=== PATIENT | female | born 1965 | race American Indian/Alaskan Native ===

== ENCOUNTER 2020-03-08 10:32 | Emergency (ER) | payer SELFPAY ==
[2020-03-08 11:31] VITALS: BP 144/95
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
== END 2020-03-08 12:28 | disposition home or self-care (01) ==
LOC: ED 10:32
DX: S29.019A Strain of muscle and tendon of unspecified wall of thorax, initial encounter (principal); I10 Essential (primary) hypertension; E11.9 Type 2 diabetes mellitus without complications; Z98.890 Other specified postprocedural states; Z79.899 Other long term (current) drug therapy; V49.69XA Unspecified car occupant injured in collision with other motor vehicles in traffic accident, initial encounter; Y93.89 Activity, other specified; Y92.488 Other paved roadways as the place of occurrence of the external cause; Y99.8 Other external cause status
CPT/HCPCS: 99282

== ENCOUNTER 2020-03-16 12:27 | Emergency (ER) | payer SELFPAY ==
[2020-03-16 12:33] VITALS: BP 140/80
[2020-03-16 13:22] LABS: Bilirubin,Urine NEG (Negative); Blood,Urine NEG (Negative); Color,Urine Yellow (Yellow); Mucus,Urine 1+ /HPF; Protein,Urine <15 mg/dL mg/dL (Negative)
[2020-03-16 13:26] LABS: HCG Qualitative,Urine Negative (Negative)
[2020-03-16] MEDS ORDERED: MORPHINE 4 MG/1 ML INJ IV ONE (14:16)
[2020-03-16] MEDS ORDERED: ONDANSETRON 4 MG/2 ML INJ IV ONE (14:16)
--- NOTE | 2020-03-16 14:46 | Emergency Department Report ---
ED Abdominal Pain HPI - General Chief Complaint: Abdominal Pain Stated Complaint: LOWER ABD PAIN/LOWER BACK PUI?: No Time Seen by Provider: 03/16/20 14:16 Source: patient Mode of arrival: Ambulatory Limitations: No Limitations - History of Present Illness Initial Comments: 54-year-old female presenting with chief complaint of sudden onset abdominal pain around 1:00 this morning located in the lower abdomen, radiating toward the back. Denies any nausea vomiting diarrhea constipation fevers urinary complaints or other concerns. History of appendectomy and x2. Pain described as moderate to severe with no alleviating or exacerbating factors. MD Complaint: abdominal pain Severity scale (0 -10): 8 - Related Data Previous Rx's Medication Instructions Recorded Last Taken Type Naproxen 500 mg PO BID #20 tablet 03/08/20 Unknown Rx methOCARBAMOL [Robaxin TAB] 500 mg PO Q6H PRN #20 tablet 03/08/20 Unknown Rx Ciprofloxacin HCl [Ciprofloxacin 500 mg PO Q12HR #20 tab 03/16/20 Unknown Rx TAB] metroNIDAZOLE [Flagyl] 500 mg PO Q8HR #30 tablet 03/16/20 Unknown Rx traMADoL [Ultram 50 MG tab] 50 mg PO Q6HR PRN #12 tablet 03/16/20 Unknown Rx Allergies Allergy/AdvReac Type Severity Reaction Status Date / Time codeine Allergy Rash Verified 03/08/20 11:31 ED Review of Systems ROS: Stated complaint: LOWER ABD PAIN/LOWER BACK Other details as noted in HPI Comment: All other systems reviewed and negative Gastrointestinal: as per HPI ED Past Medical Hx - Past Medical History Previous Medical History?: Yes Hx Hypertension: Yes Hx Diabetes: Yes - Surgical History Past Surgical History?: Yes Hx Appendectomy: Yes Additional Surgical History: c-sections x2, ganglion cyst removal - Social History Smoking Status: Never Smoker Substance Use Type: None - Medications Home Medications: Home Medications Medication Instructions Recorded Confirmed Last Taken Type Naproxen 500 mg PO BID #20 tablet 03/08/20 Unknown Rx methOCARBAMOL [Robaxin TAB] 500 mg PO Q6H PRN #20 tablet 03/08/20 Unknown Rx Ciprofloxacin HCl [Ciprofloxacin 500 mg PO Q12HR #20 tab 03/16/20 Unknown Rx TAB] metroNIDAZOLE [Flagyl] 500 mg PO Q8HR #30 tablet 03/16/20 Unknown Rx traMADoL [Ultram 50 MG tab] 50 mg PO Q6HR PRN #12 tablet 03/16/20 Unknown Rx ED Physical Exam - General Limitations: No Limitations General appearance: alert, in no apparent distress - Head Head exam: Present: atraumatic, normocephalic - Eye Eye exam: Present: normal appearance - ENT ENT exam: Present: mucous membranes moist - Neck Neck exam: Present: normal inspection - Respiratory Respiratory exam: Present: normal lung sounds bilaterally. Absent: respiratory distress - Cardiovascular Cardiovascular Exam: Present: regular rate, normal rhythm. Absent: systolic mur mur, diastolic murmur, rubs, gallop - GI/Abdominal GI/Abdominal exam: Present: soft, tenderness (llq, exam somewhat limited by body habitus), normal bowel sounds. Absent: distended, guarding, rebound, rigid - Extremities Exam Extremities exam: Present: normal inspection - Back Exam Back exam: Present: normal inspection - Neurological Exam Neurological exam: Present: alert, oriented X3 - Psychiatric Psychiatric exam: Present: normal affect, normal mood - Skin Skin exam: Present: warm, dry, intact, normal color. Absent: rash ED Course Vital Signs 03/16/20 03/16/20 12:32 16:20 Temperature 98.3 F Pulse Rate 96 H Respiratory 18 18 Rate Blood Pressure 140/80 [Left] O2 Sat by Pulse 97 Oximetry ED Medical Decision Making - Lab Data Result diagrams: 03/16/20 14:24 03/16/20 14:24 - Radiology Data Radiology results: report reviewed Acute uncomplicated mild diverticulitis - Medical Decision Making 54-year-old female presenting with abdominal pain since this morning. No other symptoms. No distress on exam, some mild left lower quad tenderness noted. Labs and CT will be obtained. Patient given morphine for pain. CT shows diverticulitis. No complication such as abscess or perforation. We will place on antibiotics and refer to GI for follow-up. Return precautions given. - Differential Diagnosis Diverticulitis, UTI, colitis Critical care attestation.: If time is entered above; I have spent that time in minutes in the direct care of this critically ill patient, excluding procedure time. ED Disposition Clinical Impression: Acute diverticulitis of intestine Disposition: DC-01 TO HOME OR SELFCARE Is pt being admited?: No Condition: Good Instructions: Abdominal Pain (ED), Diverticulitis Diet (ED), Diverticulitis (ED) Prescriptions: Ciprofloxacin HCl [Ciprofloxacin TAB] 500 mg PO Q12HR #20 tab metroNIDAZOLE [Flagyl] 500 mg PO Q8HR #30 tablet traMADoL [Ultram 50 MG tab] 50 mg PO Q6HR PRN #12 tablet PRN Reason: Pain Referrals: PRIMARY CARE, [Primary Care Provider] - 3-5 Days LATOYA DONOVAN MD [Staff Physician] - 3-5 Days Forms: AMA Form Time of Disposition: 16:59
[2020-03-16 14:47] LABS: Basophils % (Auto) 0.4 % (0.0-1.8); Eosinophils % (Auto) 0.1 % (0.0-4.3); Hematocrit 34.6 % (30.3-42.9); Hemoglobin 11.6 gm/dl (10.1-14.3); Lymphocytes % (Auto) 27.4 % (13.4-35.0); Mean Corpuscular HGB Conc 34 % (30-34); Mean Corpuscular Volume 83 fl (79-97); Monocytes # (Auto) 0.6 K/mm3 (0.0-0.8); Monocytes % (Auto) 7.6 % (0.0-7.3); Platelet Count 197 K/mm3 (140-440); Red Blood Count 4.17 M/mm3 (3.65-5.03); Red Cell Distribution Width 14.5 % (13.2-15.2)
[2020-03-16 15:11] LABS: Alanine Aminotransferase 30 units/L (7-56); Albumin 3.6 g/dL (3.9-5); BUN/Creatinine Ratio 18; Blood Urea Nitrogen 14 mg/dL (7-17); Hemolysis Index 6
[2020-03-16] MEDS ORDERED: MORPHINE 4 MG/1 ML INJ ONE (16:18)
[2020-03-16] MEDS ORDERED: ONDANSETRON 4 MG/2 ML INJ ONE (16:19)
--- NOTE | 2020-03-16 16:52 | Cat Scan Report ---
CT ABDOMEN AND PELVIS WITH CONTRAST INDICATION / CLINICAL INFORMATION: llq pain. TECHNIQUE: Axial CT images were obtained through the abdomen and pelvis following the administration of intraven ous contrast. All CT scans at this location are performed using CT dose reduction for ALARA by means of automated exposure control. COMPARISON: None available. FINDINGS: LOWER CHEST: No significant abnormality. LIVER: No significant abnormality. GALLBLADDER: No significant abnormality. PANCREAS: No significant abnormality. SPLEEN: No significant abnormality. ADRENALS: No significant abnormality. KIDNEYS / URETERS: No significant abnormality. URINARY BLADDER: No significant abnormality. REPRODUCTIVE ORGANS: No significant abnormality. STOMACH / SMALL BOWEL: No significant abnormality. COLON: Scattered colonic diverticula are seen. There is a focal region of mucosal thickening and kristine colonic inflammatory fat stranding within the distal descending/proximal sigmoid colon, compatible wi th acute diverticulitis. There is no perforation or abscess formation. APPENDIX: Surgically absent. PERITONEUM: No free fluid. No free air. No fluid collection. LYMPH NODES: No significant adenopathy. AORTA / ARTERIES: No significant abnormality. IVC / VEINS: No significant abnormality. SKELETAL SYSTEM: No significant abnormality. ADDITIONAL FINDINGS: Tiny fat-containing umbilical hernia. IMPRESSION: 1. Acute uncomplicated diverticulitis of the distal descending/proximal sigmoid colon. Signer Name: Corky Bejarano MD Signed: 03/16/2020 4:48 PM Workstation Name: [id number]
== END 2020-03-16 17:09 | disposition home or self-care (01) ==
LOC: ED 12:27
DX: K57.92 Diverticulitis of intestine, part unspecified, without perforation or abscess without bleeding (principal); I10 Essential (primary) hypertension; E11.9 Type 2 diabetes mellitus without complications; Z90.49 Acquired absence of other specified parts of digestive tract; Z98.890 Other specified postprocedural states; Z79.899 Other long term (current) drug therapy; Z88.6 Allergy status to analgesic agent
CPT/HCPCS: 36415; 74177; 80053; 81001; 81025; 85025; 96374; 96375; 99284; J2270; J2405; Q9967

== ENCOUNTER 2020-05-23 16:36 | Emergency (ER) | payer OTHER ==
[2020-05-23 16:42] VITALS: BP 135/75
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
== END 2020-05-23 19:00 | disposition home or self-care (01) ==
LOC: ED 16:36
DX: M25.511 Pain in right shoulder (principal); I10 Essential (primary) hypertension; E11.9 Type 2 diabetes mellitus without complications; Z79.899 Other long term (current) drug therapy; Z88.6 Allergy status to analgesic agent; Z98.890 Other specified postprocedural states; Z90.49 Acquired absence of other specified parts of digestive tract
CPT/HCPCS: 99282